=== PATIENT | female | born 1980 | race Hispanic/Latino ===

== ENCOUNTER 2020-01-31 14:22 | Emergency (ER) | payer SELFPAY ==
[2020-01-31] MEDS ORDERED: FLUORESCEIN SODIUM 1 MG/WRAP ONE (16:04)
[2020-01-31] MEDS ORDERED: TETRACAINE HCL 0.5% 4ML OPTH ONE (16:04)
--- NOTE | 2020-01-31 16:04 | ER ---
Nurse's Notes [facility] Name: Ofe Medellin Age: 39 yrs Sex: Female : 1980 Arrival Date: 01/31/2020 Time: 14:25 Bed 20 Private MD: Diagnosis: Injury of conjunctiva and cornea with foreign body of right eye Presentation: 01/30 14:31 Chief complaint: Patient states: "I feel like someone is stabbing me in my right eye. i jd3 found a cat hair near my eye and think it might have hurt my eye.". Coronavirus screen: At this time, the client does not indicate any symptoms associated with coronavirus-19. Ebola Screen: Patient negative for fever greater than or equal to 101.5 degrees Fahrenheit, and additional compatible Ebola Virus Disease symptoms. Initial Sepsis Screen: Does the patient meet any 2 criteria? No. Patient's initial sepsis screen is negative. Does the patient have a suspected source of infection? No. Patient's initial sepsis screen is negative. Risk Assessment: Do you want to hurt yourself or someone else? Patient reports no desire to harm self or others. Onset of symptoms was January 31, 2020. 14:31 Method Of Arrival: Ambulatory jd3 14:31 Acuity: MARELY 4 jd3 Triage Assessment: 15:20 General: Appears uncomfortable, Behavior is calm, cooperative. 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 - Social history:: Smoking status: Patient reports the use of cigarette tobacco products, smokes one-half pack cigarettes per day. Screenin:20 Abuse screen: Denies threats or abuse. Nutritional screening: No deficits noted. rb3 Tuberculosis screening: No symptoms or risk factors identified. Fall Risk None identified. Assessment: 15:20 General: Appears uncomfortable, Behavior is calm, cooperative. Pain: Complains of pain rb3 in right eye Pain currently is 8 out of 10 on a pain scale. Neuro: Level of Consciousness is awake, alert, obeys commands, Oriented to person, place, time, situation. Cardiovascular: Patient's skin is warm and dry. Respiratory: Airway is patent Respiratory effort is even, unlabored, Respiratory pattern is regular, symmetrical. GI: No signs and/or symptoms were reported involving the gastrointestinal system. : No signs and/or symptoms were reported regarding the genitourinary system. EENT: Eyes are tearing on iris of right eye Sclera/Cornea are reddened in right eye. Vital Signs: 14:35 BP 120 / 83; Pulse 83; Resp 16 S; Temp 98.5(TE); Pulse Ox 99% on R/A; Weight 86.18 kg jd3 (R); Height 5 ft. 10 in. (177.80 cm) (R); Pain 8/10; 14:35 Body Mass Index 27.26 (86.18 kg, 177.80 cm) jd3 ED Course: 14:25 Patient arrived in ED. as 14:32 Triage completed. jd3 14:36 Arm band placed on. jd3 14:39 [facility]C [facility] snw 14:39 Byron Menchaca MD is Attending Physician. snw 15:20 Patient has correct armband on for positive identification. Bed in low position. Call rb3 light in reach. Side rails up X 1. Pulse ox on. NIBP on. 16:02 Jayda Cruz MD is Referral Physician. snw 16:32 No provider procedures requiring assistance completed. Patient did not have IV access rb3 during this emergency room visit. Administered Medications: 16:00 Drug: Fluorescein Strip 1 strip Route: Ophthalmic; Site: right eye; rb3 16:00 Drug: Tetracaine Drops 0.5 % 1 drops Route: Ophthalmic; Site: right eye; rb3 16:24 Drug: [place] 5 mg-325 mg 1 tabs Route: PO; rb3 16:30 Follow up: Response: Medication administered at discharge. rb3 16:24 Drug: Gentamicin Ointment 0.3 % 0.5 inches Route: Ophthalmic; Site: right eye; rb3 Outcome: 16:04 Discharge ordered by . snw 16:32 Patient left the ED. rb3 16:32 Discharged to home ambulatory. rb3 16:32 Condition: stable 16:32 Discharge instructions given to patient, Instructed on discharge instructions, follow up and referral plans. medication usage, Demonstrated understanding of instructions, follow-up care, medications, Prescriptions given X 2. Signatures: Kirsten Yeung, GUEST SERVICES REPRESENTATIVE-C GUEST SERVICES REPRESENTATIVE-Csnw Yasemin Llanos Jonathon RN RN jd3 Beatriz Bingham, RN RN rb3
--- NOTE | 2020-01-31 16:05 | EDPHYS ---
Physician Documentation [facility] Name: Ofe Medellin Age: 39 yrs Sex: Female : 1980 Arrival Date: 01/31/2020 Time: 14:25 Bed 20 Private MD: ED Physician Byron Menchaca HPI: 01/30 16:32 This 39 yrs old Female presents to ER via Ambulatory with complaints of Eye snw Swelling, Drainage From Eye. 16:32 The patient sustained a scratch, to the right eye, caused by "cat hair". Onset: The snw symptoms/episode began/occurred suddenly, 2 day(s) ago, and became worse and became persistent. Duration: the symptoms are continuous. Associated signs and symptoms: Pertinent positives: headache. Patient wears soft contacts. Severity of symptoms: At their worst the symptoms were moderate. The patient has not experienced similar symptoms in the past. It is unknown whether or not the patient has recently seen a physician. 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 - Social history:: Smoking status: Patient reports the use of cigarette tobacco products, smokes one-half pack cigarettes per day. ROS: 16:28 Constitutional: Negative for fever, chills, and weight loss, ENT: Negative for injury, snw pain, and discharge, Neck: Negative for injury, pain, and swelling, Cardiovascular: Negative for chest pain, palpitations, and edema, Respiratory: Negative for shortness of breath, cough, wheezing, and pleuritic chest pain, Abdomen/GI: Negative for abdominal pain, nausea, vomiting, diarrhea, and constipation, Back: Negative for injury and pain, : Negative for injury, bleeding, discharge, and swelling, MS/Extremity: Negative for injury and deformity, Skin: Negative for injury, rash, and discoloration. 16:28 Psych: Negative for depression, anxiety, suicide ideation, homicidal ideation, and hallucinations. 16:28 Eyes: Positive for foreign body sensation, pain, redness, tearing, of the iris of right eye. 16:28 Neuro: Positive for headache. Exam: 16:26 Constitutional: This is a well developed, well nourished patient who is awake, alert, snw and in no acute distress. Head/Face: Normocephalic, atraumatic. ENT: Nares patent. No nasal discharge, no septal abnormalities noted. Tympanic membranes are normal and external auditory canals are clear. Oropharynx with no redness, swelling, or masses, exudates, or evidence of obstruction, uvula midline. Mucous membranes moist. Neck: Trachea midline, no thyromegaly or masses palpated, and no cervical lymphadenopathy. Supple, full range of motion without nuchal rigidity, or vertebral point tenderness. No Meningismus. Chest/axilla: Normal chest wall appearance and motion. Nontender with no deformity. No lesions are appreciated. Cardiovascular: Regular rate and rhythm with a normal S1 and S2. No gallops, murmurs, or rubs. Normal PMI, no JVD. No pulse deficits. Respiratory: Lungs have equal breath sounds bilaterally, clear to auscultation and percussion. No rales, rhonchi or wheezes noted. No increased work of breathing, no retractions or nasal flaring. Abdomen/GI: Soft, non-tender, with normal bowel sounds. No distension or tympany. No guarding or rebound. No evidence of tenderness throughout. Back: No spinal tenderness. No costovertebral tenderness. Full range of motion. Skin: Warm, dry with normal turgor. Normal color with no rashes, no lesions, and no evidence of cellulitis. MS/ Extremity: Pulses equal, no cyanosis. Neurovascular intact. Full, normal range of motion. Neuro: Awake and alert, GCS 15, oriented to person, place, time, and situation. Cranial nerves II-XII grossly intact. Motor strength 5/5 in all extremities. Sensory grossly intact. Cerebellar exam normal. Normal gait. Psych: Awake, alert, with orientation to person, place and time. Behavior, mood, and affect are within normal limits. 16:26 Eyes: Periorbital structures: appear normal, Pupils: no acute changes, Extraocular movements: no acute changes, Conjunctiva: injected, in the right eye, tearing noted, Corneas: abrasion, that is moderate sized, linear from top eyelid distal to pupil, foreign body, an eyelash, a fluorescein strip employed to appreciate the findings, foreign body removed, Lids and lashes: eyelash removed from upper lid. Nystagmus: is not appreciated. Vital Signs: 14:35 BP 120 / 83; Pulse 83; Resp 16 S; Temp 98.5(TE); Pulse Ox 99% on R/A; Weight 86.18 kg jd3 (R); Height 5 ft. 10 in. (177.80 cm) (R); Pain 8/10; 14:35 Body Mass Index 27.26 (86.18 kg, 177.80 cm) jd3 Procedures: 16:32 Eye Exam: linear corneal abrasion, upper lid with inverted eyelash in same location. snw Eyelash removed. MDM: 15:23 Patient medically screened. snw 16:31 Data reviewed: vital signs, nurses notes. Data interpreted: Pulse oximetry: on room air snw is 99 %. Interpretation: normal. Counseling: I had a detailed discussion with the patient and/or guardian regarding: the historical points, exam findings, and any diagnostic results supporting the discharge/admit diagnosis, the need for outpatient follow up, to return to the emergency department if symptoms worsen or persist or if there are any questions or concerns that arise at home. Special discussion: Based on the history and exam findings, there is no indication for further emergent testing or inpatient evaluation. I discussed with the patient/guardian the need to see the opthamologist for further evaluation of the symptoms, I discussed with the patient/guardian the need to see the primary care provider for further evaluation of the symptoms. 01/30 15:23 Order name: Eye Tray; Complete Time: 16:00 snw 01/30 15:45 Order name: Visual Acuity; Complete Time: 15:59 snw Administered Medications: 16:00 Drug: Fluorescein Strip 1 strip Route: Ophthalmic; Site: right eye; rb3 16:00 Drug: Tetracaine Drops 0.5 % 1 drops Route: Ophthalmic; Site: right eye; rb3 16:24 Drug: [place] 5 mg-325 mg 1 tabs Route: PO; rb3 16:30 Follow up: Response: Medication administered at discharge. rb3 16:24 Drug: Gentamicin Ointment 0.3 % 0.5 inches Route: Ophthalmic; Site: right eye; rb3 Disposition: 18:27 Co-signature as Attending Physician, Byron Menchaca MD I agree with the assessment and kdr plan of care. Disposition: 01/31/20 16:04 Discharged to Home. Impression: Injury of conjunctiva and cornea with foreign body of right eye. - Condition is Stable. - Discharge Instructions: Corneal Abrasion, Eye Foreign Body. - Prescriptions for Vigamox 0.5 % Ophthalmic Drops - instill 1 drop by OPHTHALMIC route every 8 hours for 7 days; 5 milliliter. Tramadol 50 mg Oral Tablet - take 1 tablet by ORAL route every 8 hours as needed; 12 tablet. - Medication Reconciliation Form, Thank You Letter, Antibiotic Education, Prescription Opioid Use form. - Follow up: Emergency Department; When: As needed; Reason: Worsening of condition. Follow up: Jayda Cruz MD; When: 1 - 2 days; Reason: Recheck today's complaints, Continuance of care. Signatures: Byron Menchaca MD MD kdr Waters, Shelly, GRAPHIC PRODUCTION ARTIST-C GRAPHIC PRODUCTION ARTIST-Csnw Gary Castro RN RN jBeatriz Velez, RN RN rb3 Corrections: (The following items were deleted from the chart) 16:32 16:04 01/31/2020 16:04 Discharged to Home. Impression: Injury of conjunctiva and cornea rb3 with foreign body of right eye. Condition is Stable. Forms are Medication Reconciliation Form, Thank You Letter, Antibiotic Education, Prescription Opioid Use. Follow up: Emergency Department; When: As needed; Reason: Worsening of condition. Follow up: Jayda Cruz; When: 1 - 2 days; Reason: Recheck today's complaints, Continuance of care. snw
[2020-01-31] MEDS ORDERED: HYDROCODONE/APAP 5/325 MG TAB ONE (16:33)
[2020-01-31] MEDS ORDERED: GENTAMICIN 0.3% OPTH DROP 5ML ONE (16:35)
[2020-01-31 17:59] VITALS: BP 120/83; TEMP 98.5; O2SAT 99
== END 2020-01-31 16:32 | disposition home or self-care (01) ==
LOC: ER 14:22
DX: T15.01XA Foreign body in cornea, right eye, initial encounter (principal); S00.251A Superficial foreign body of right eyelid and periocular area, initial encounter; F41.9 Anxiety disorder, unspecified; F90.9 Attention-deficit hyperactivity disorder, unspecified type; F17.210 Nicotine dependence, cigarettes, uncomplicated; Z88.1 Allergy status to other antibiotic agents
CPT/HCPCS: 99283

== ENCOUNTER 2020-03-05 01:31 | Emergency (ER) | payer SELFPAY ==
--- OUTSIDE RECORDS SUMMARY | 2020-03-05 01:34 | XMS REPORT | Continuity of Care Document ---
:1980 Author Organization [facility] t Address [address] [place] [address] Dr. Royal [address] [place] [id number] Care Team Providers Name Role Phone Unavailable Unavailable Unavailable Problems This patient has no known problems. Allergies, Adverse Reactions, Alerts This patient has no known allergies or adverse reactions. Medications This patient has no known medications. Procedures This patient has no known procedures. Results This patient has no known results.
--- NOTE | 2020-03-05 03:11 | ER ---
Nurse's Notes [facility] Name: Ofe Medellin Age: 39 yrs Sex: Female : 1980 Arrival Date: 03/05/2020 Time: 01:32 Bed 24 Private MD: Diagnosis: Gastrointestinal hemorrhage, unspecified-rectal bleeding, hemorrhoids Presentation: 03/05 01:49 Chief complaint: Patient states: Im having pain in my bottom, I think its a large sg hemorrhoid. Coronavirus screen: Client denies travel out of the [place] in the last 14 days. Ebola Screen: Patient negative for fever greater than or equal to 101.5 degrees Fahrenheit, and additional compatible Ebola Virus Disease symptoms Patient denies exposure to infectious person. Patient denies travel to an Ebola-affected area in the 21 days before illness onset. No symptoms or risks identified at this time. Initial Sepsis Screen: Does the patient meet any 2 criteria? No. Patient's initial sepsis screen is negative. Does the patient have a suspected source of infection? No. Patient's initial sepsis screen is negative. Risk Assessment: Do you want to hurt yourself or someone else? Patient reports no desire to harm self or others. Onset of symptoms was March 05, 2020. Care prior to arrival: None. Transition of care: patient was not received from another setting of care. 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 - Social history:: Smoking status: Patient denies any tobacco usage or history of. - Family history:: not pertinent. Screenin:04 Abuse screen: Denies threats or abuse. Denies injuries from another. Nutritional mg2 screening: No deficits noted. Tuberculosis screening: No symptoms or risk factors identified. Fall Risk. Assessment: 02:03 General: Appears in no apparent distress. comfortable, Behavior is calm, cooperative. mg2 Pain: Complains of pain in anal area Quality of pain is described as aching, Pain began gradually, 1 week ago. Neuro: Level of Consciousness is awake, alert, obeys commands, Oriented to person, place, time, situation. Cardiovascular: Capillary refill < 3 seconds Patient's skin is warm and dry. Respiratory: Airway is patent Respiratory effort is even, unlabored, Respiratory pattern is regular, symmetrical. GI: Reports rectal pain. : No signs and/or symptoms were reported regarding the genitourinary system. EENT: No signs and/or symptoms were reported regarding the EENT system. Derm: Skin is intact, is healthy with good turgor, Skin is pink, warm \T\ dry. normal. Musculoskeletal: Circulation, motion, and sensation intact. Capillary refill < 3 seconds. Vital Signs: 01:49 BP 144 / 80; Pulse 78; Resp 16; Pulse Ox 100% on R/A; Pain 10/10; sg 03:35 BP 135 / 78; Pulse 80; Resp 18; Temp 98; Pulse Ox 100% on R/A; mg2 ED Course: 01:32 Patient arrived in ED. ag3 01:35 Mikal Hoyt MD is Attending Physician. mendez 01:49 Triage completed. sg 01:49 Arm band placed on. sg 01:57 Adolph Mercado, KOBE is Primary Nurse. mg2 02:05 Patient has correct armband on for positive identification. mg2 03:09 Shawn Mendoza MD is Referral Physician. mendez 03:09 Urine collected: clean catch specimen, cloudy. sg 03:35 No provider procedures requiring assistance completed. Patient did not have IV access mg2 during this emergency room visit. Administered Medications: 03:13 Drug: Cipro 500 mg Route: PO; mg2 03:35 Follow up: Response: No adverse reaction mg2 03:13 Drug: [place] (7.5 mg-325 mg) 1 tabs Route: PO; mg2 03:35 Follow up: Response: No adverse reaction mg2 03:34 Drug: Anusol-HC 25 mg 25 mg Route: NV; mg2 03:34 Follow up: Response: No adverse reaction; Medication administered at discharge. mg2 Outcome: 03:11 Discharge ordered by . mendez 03:35 Discharged to home ambulatory. mg2 03:35 Condition: stable 03:35 Discharge instructions given to patient, Instructed on discharge instructions, follow up and referral plans. medication usage, Demonstrated understanding of instructions, follow-up care, medications, Prescriptions given X 4. 03:36 Patient left the ED. mg2 Signatures: Ghassan Bangura RN RN sg Anderson, Corey, MD MD cha Gardose, Michele, RN RN mg2 Radha Mariee
--- NOTE | 2020-03-05 03:11 | EDPHYS ---
Physician Documentation [facility] Name: Ofe Medellin Age: 39 yrs Sex: Female : 1980 Arrival Date: 03/05/2020 Time: 01:32 Bed 24 Private MD: TRACY Physician Mikal Hoyt HPI: 03/05 03:04 This 39 yrs old Female presents to ER via Ambulatory with complaints of mendez Hemorrhoids. 03:04 The patient presents to the emergency department with rectal bleeding, bright red blood mendez with bowel movement. Onset: The symptoms/episode began/occurred 1 year(s) ago. Abdominal pain: none is appreciated. Modifying factors: The symptoms are alleviated by remaining still, the symptoms are aggravated by movement, pressure. The patient presents to the emergency department with bleeding from the rectum/anus, that is mild, pain in the rectal area, that is moderate. Context: the patient has a known history of hemorrhoids. Modifying factors: The symptoms are alleviated by remaining still, sitz baths, The symptoms are aggravated by bowel movement, sitting position. Severity of symptoms: At their worst the symptoms were mild moderate in the emergency department the symptoms are unchanged. Associate signs and symptoms: The patient has no apparent associated signs or symptoms. 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 - Social history:: Smoking status: Patient denies any tobacco usage or history of. - Family history:: not pertinent. ROS: 03:04 Constitutional: Negative for fever, chills, and weight loss, Eyes: Negative for injury, mendez pain, redness, and discharge, ENT: Negative for injury, pain, and discharge, Neck: Negative for injury, pain, and swelling, Cardiovascular: Negative for chest pain, palpitations, and edema, Respiratory: Negative for shortness of breath, cough, wheezing, and pleuritic chest pain, Back: Negative for injury and pain, : Negative for injury, bleeding, discharge, and swelling, MS/Extremity: Negative for injury and deformity, Skin: Negative for injury, rash, and discoloration, Neuro: Negative for headache, weakness, numbness, tingling, and seizure, Psych: Negative for depression, anxiety, suicide ideation, homicidal ideation, and hallucinations, Allergy/Immunology: Negative for hives, rash, and allergies, Endocrine: Negative for neck swelling, polydipsia, polyuria, polyphagia, and marked weight changes, Hematologic/Lymphatic: Negative for swollen nodes, abnormal bleeding, and unusual bruising. 03:04 Abdomen/GI: Positive for rectal pain, rectal bleeding, of the . Exam: 03:04 Constitutional: This is a well developed, well nourished patient who is awake, alert, mendez and in no acute distress. Head/Face: Normocephalic, atraumatic. Eyes: Pupils equal round and reactive to light, extra-ocular motions intact. Lids and lashes normal. Conjunctiva and sclera are non-icteric and not injected. Cornea within normal limits. Periorbital areas with no swelling, redness, or edema. ENT: Nares patent. No nasal discharge, no septal abnormalities noted. Tympanic membranes are normal and external auditory canals are clear. Oropharynx with no redness, swelling, or masses, exudates, or evidence of obstruction, uvula midline. Mucous membranes moist. Neck: Trachea midline, no thyromegaly or masses palpated, and no cervical lymphadenopathy. Supple, full range of motion without nuchal rigidity, or vertebral point tenderness. No Meningismus. Chest/axilla: Normal chest wall appearance and motion. Nontender with no deformity. No lesions are appreciated. Cardiovascular: Regular rate and rhythm with a normal S1 and S2. No gallops, murmurs, or rubs. Normal PMI, no JVD. No pulse deficits. Respiratory: Lungs have equal breath sounds bilaterally, clear to auscultation and percussion. No rales, rhonchi or wheezes noted. No increased work of breathing, no retractions or nasal flaring. Back: No spinal tenderness. No costovertebral tenderness. Full range of motion. Pelvic Exam: Normal external genitalia. Speculum exam with closed cervical os, no discharge or bleeding noted. Bimanual exam with normal adnexa, no adnexal or cervical motion tenderness. Normal uterus. Skin: Warm, dry with normal turgor. Normal color with no rashes, no lesions, and no evidence of cellulitis. MS/ Extremity: Pulses equal, no cyanosis. Neurovascular intact. Full, normal range of motion. Neuro: Awake and alert, GCS 15, oriented to person, place, time, and situation. Cranial nerves II-XII grossly intact. Motor strength 5/5 in all extremities. Sensory grossly intact. Cerebellar exam normal. Normal gait. Psych: Awake, alert, with orientation to person, place and time. Behavior, mood, and affect are within normal limits. 03:04 Abdomen/GI: Inspection: abdomen appears normal, Bowel sounds: normal, Palpation: abdomen is soft and non-tender, Rectal exam: hemorrhoid(s), external, with associated bleeding, with inflammation, with pain, mass, is not appreciated, swelling, that is mild, Liver: no appreciated palpable abnormalities, Hernia: not appreciated. Vital Signs: 01:49 BP 144 / 80; Pulse 78; Resp 16; Pulse Ox 100% on R/A; Pain 10/10; sg 03:35 BP 135 / 78; Pulse 80; Resp 18; Temp 98; Pulse Ox 100% on R/A; mg2 MDM: 01:35 Patient medically screened. [facility] 03:08 Differential diagnosis: hemorrhoids, hemorrhoids, condyloma. Data reviewed: vital mendez signs, nurses notes, lab test result(s), urinalysis. 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 rate is 78 beats/min, rhythm is regular, Pulse oximetry: on room air is 100 %. 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 12 03:11 Order name: Urine Dipstick--Ancillary (enter results) 12 03:11 Order name: Urine --Ancillary (enter results) 03/05 03:04 Order name: Urine Dipstick-Ancillary (obtain specimen); Complete Time: 03:[address] [facility] 12 03:04 Order name: Urine Test (obtain specimen); Complete Time: 03:09 mendez Administered Medications: 03:13 Drug: Cipro 500 mg Route: PO; mg2 03:35 Follow up: Response: No adverse reaction mg2 03:13 Drug: Hutchinson (7.5 mg-325 mg) 1 tabs Route: PO; mg2 03:35 Follow up: Response: No adverse reaction mg2 03:34 Drug: Anusol-HC 25 mg 25 mg Route: ID; mg2 03:34 Follow up: Response: No adverse reaction; Medication administered at discharge. mg2 Disposition: 03/05/20 03:11 Discharged to Home. Impression: Gastrointestinal hemorrhage, unspecified - rectal bleeding, hemorrhoids. - Condition is Stable. - Discharge Instructions: Hemorrhoids, Rectal Bleeding, How to Take a Sitz Bath, Hemorrhoids, [id number]. - Prescriptions for Tylenol- Codeine #3 300-30 mg Oral Tablet - take 2 tablets by ORAL route every 6 hours As needed; 16 tablet. Cipro 500 mg Oral Tablet - take 1 tablet by ORAL route every 12 hours for 7 days; 14 tablet. Anusol- HC 25 mg Rectal Suppository - insert 1 suppository by RECTAL route every 12 hours As needed; 20 suppository. Miralax 17 gram/dose Oral - take 1 packet by ORAL route once daily dilute powder in 8 ounces of water or juice; 14 packet. - Medication Reconciliation Form, Thank You Letter, Antibiotic Education, Prescription Opioid Use form. - Follow up: Private Physician; When: 2 - 3 days; Reason: Recheck today's complaints, Continuance of care, Re-evaluation by your physician. Follow up: Shawn Mendoza MD; When: 2 - 3 days; Reason: Recheck today's complaints, Re-evaluation by your physician. - Problem is new. - Symptoms have improved. Signatures: Dispatcher [employer] EDGhassan Rossi RN RN sg Anderson, Corey, MD MD cha Gardose, Michele RN RN mg2 Corrections: (The following items were deleted from the chart) 03:36 03:11 03/05/2020 03:11 Discharged to Home. Impression: Gastrointestinal hemorrhage, mg2 unspecified - rectal bleeding, hemorrhoids. Condition is Stable. Forms are Medication Reconciliation Form, Thank You Letter, Antibiotic Education, Prescription Opioid Use. Follow up: Private Physician; When: 2 - 3 days; Reason: Recheck today's complaints, Continuance of care, Re-evaluation by your physician. Follow up: Shawn Mendoza; When: 2 - 3 days; Reason: Recheck today's complaints, Re-evaluation by your physician. Problem is new. Symptoms have improved. mendez
[2020-03-05] MEDS ORDERED: CIPROFLOXACIN HCL 500 MG TAB ONE (03:25)
[2020-03-05] MEDS ORDERED: HYDROCODONE/APAP 7.5/325 MG TAB ONE (03:25)
[2020-03-05] MEDS ORDERED: HYDROCORTISONE ACETATE 25MG SUPP PR ONE (03:39)
[2020-03-05 05:06] LABS: Urine Blood 1+ (NEG); Urine Glucose NEGATIVE (NEG); Urine Protein NEGATIVE (NEG)
== END 2020-03-05 03:36 | disposition home or self-care (01) ==
LOC: ER 01:31
DX: K64.9 Unspecified hemorrhoids (principal); Z88.1 Allergy status to other antibiotic agents
CPT/HCPCS: 81003; 81025; 99283

== ENCOUNTER 2024-11-06 05:10 | Emergency (ER) | payer SELFPAY ==
--- OUTSIDE RECORDS SUMMARY | 2024-11-06 05:13 | XMS REPORT | Continuity of Care Document ---
Author Name Unknown Address [address] [place] [address] [facility] Address [address] [place] [address] Care Team Providers Care Fisher Gill Net Name Role Phone Syeda Alcazar Attending Clinician Unavail able UNDEFINED Admitting Clinician Unavailable Payers Payer Name Policy Type Policy Number Effective Date Expirati on Date Source Allergies, Adverse Reactions, Alerts Allergy Name Allergy Type Status Severity Reaction(s) Onset Date Inactive Date Treating Clinician Comments Source No Known Allergie s DA Active U 09-15 00:00: 00 [facility] Encounters Start Date/Time End Date/Time Encounter Type Admission Type Attending Clinicians Care Facility Care Department Encounter ID Source 2021-09-16 01:32:21 Outpatient [facility] [id number] [facility] 2021-09-15 11:51:00 2021-09-17 02:15:00 Emergency EM Syeda Alcazar [facility] [id number] [facility] Results Test Description Test Time Test Comments Results Result Co mments Source [id number] 12:40:00* Test Item Value Reference Range Interpretation Comme nts ALCOHOL (test code = ALC) < 3 MG/DL 0-10 N BASIC METABOLIC [id number] 12:40:00* Test Item Value Reference Range Interpretation Comme nts SODIUM (test code = NA) 138 mmol/L 134-147 N POTASSIUM (test code = K) 3.4 mmol/L 3.4-5.0 N CHLORIDE (test code = CL) 104 mmol/L 100-108 N CARBON DIOXIDE (test code = CO2) 25 mmol/L 21-32 N ANION GAP (test code = GAP) 9.0 GAP calc 4.0-15.0 N GLUCOSE (test code = GLU) 101 MG/DL 70-110 N BLOOD UREA NITROGEN (test code = BUN) 7 MG/DL 7-18 N GLOMERULAR FILTRATION RATE (test code = GFR) >=60 max estimate estGFR >60 CREATININE (test code = CREAT) 0.8 MG/DL 0.6-1.0 N CALCIUM (test code = CA) 9.8 MG/DL 8.5-10.1 N HEPATIC FUNCTION [id number] 12:40:00* Test Item Value Reference Range Interpretation Comme nts TOTAL PROTEIN (test code = PROT) 8.5 G/DL 6.4-8.2 H ALBUMIN (test code = ALB) 4.8 G/DL 3.4-5.0 N BILIRUBIN TOTAL (test code = BILT) 0.70 MG/DL 0.2-1.2 N BILIRUBIN DIRECT (test code = BILD) 0.20 MG/DL 0.00-0.30 N BILIRUBIN INDIRECT (test cod e = BILIND) 0.50 MG/DL 0.2-1.2 N SGOT/AST (test code = AST) 12 Unit/L 15-37 L SGPT/ALT (test code = ALT) 19 Unit/L 12-78 N ALKALINE PHOSPHATASE TOTAL ( test code = ALKP) 85 Unit/L 45-117 N CREATINE KINASE (CK)2021-09-15 12:40:00* Test Item Value Reference Range Interpretation Comme nts CREATINE KINASE (CK) (test c ode = CK) 128 Unit/L 26-192 N UA RFLX MICR CULT IF [id number] 12:26:00* Test Item Value Reference Range Interpretation Comme nts UA COLOR (test code = COLU) YELLOW discript YEL/STRAW UA APPEARANCE (test code = APPU) CLEAR discript CLEAR UA GLUCOSE DIPSTICK (test code = DGLUU) NEGATIVE mg/dL NEG UA BILIRUBIN DIPSTICK (test code = BILU) NEGATIVE mg/dL NEG UA KETONE DIPSTICK (test code = KETU) NEGATIVE mg/dL NEG UA SPECIFIC GRAVITY (test code = SGU) <=1.005 SG 1.005-1.030 UA BLOOD DIPSTICK (test code = JOHN) 2+ mg/DL NEG A UA PH DIPSTICK (test code = AMADOR) 6.0 pH UNITS 5.0-7.0 UA PROTEIN DIPSTICK (test code = PROU) NEGATIVE mg/dL NEG UA UROBILINIOGEN DIPSTICK (test code = URO) 0.2 mg/dL <2.0 UA NITRITE DIPSTICK (test code = AIMEE) NEGATIVE SCREEN NEG UA LEUKOCYTE ESTERASE DIPSTICK (test code = LEUU) NEGATIVE Leuk/mcL NEGATIVE UA CULTURE NEEDED? (test code = UACULT) NO, WBC<10 Criteria Culture CHK UA WBC (test code = WBCU) 0-1 #WBC/HPF 0-3 UA RBC (test code = RBCU) 10-20 #RBC/HPF 0-3 A UA BACTERIA (test code = BACU) 1+ /HPF NONE-TRACE A UA SQUAMOUS CELLS (test code = SQU) 1+ /HPF NONE A Indication for culture: Suprapubic PainSOURCE OF URINE: CLEAN CATCHDRUGS OF ABUSE SCREEN [id number] 12:26:00* Test Item Value Reference Range Interpretation Comme nts URN COCAINE (test code = COCAURN) NEGATIVE SCcutoff See_Comment UNCONFIRMED SCREENING RESULTS SHOULD NOT BE USED FORNON-MEDICAL PURPOSES. [Automated message] The system which generated this result transmitted reference range: <300 NG/ML. The reference range was not used to interpret this result as normal/abnormal. URN CANNABINOIDS (test code = CANNABURN) POSITIVE SCcutoff See_Comment A UNCONFIRMED SCREENING RESULTS SHOULD NOT BE USED FORNON-MEDICAL PURPOSES. [Automated message] The system which generated this result transmitted reference range: <50 NG/ML. The reference range was not used to interpret this result as normal/abnormal. URN AMPHETAMINE (test code = AMPHETURN) POSITIVE SCcutoff See_Comment A UNCONFIRMED SCREENING RESULTS SHOULD NOT BE USED FORNON-MEDICAL PURPOSES. [Automated message] The system which generated this result transmitted reference range: <1000 NG/ML. The reference range was not used to interpret this result as normal/abnormal. URN BARBITURATE (test code = BARBITURN) NEGATIVE SCcutoff See_Comment UNCONFIRMED SCREENING RESULTS SHOULD NOT BE USED FORNON-MEDICAL PURPOSES. [Automated message] The system which generated this result transmitted reference range: <200 NG/ML. The reference range was not used to interpret this result as normal/abnormal. URN BENZODIAZEPINE (test code = BENZOURN) NEGATIVE SCcutoff See_Comment UNCONFIRMED SCREENING RESULTS SHOULD NOT BE USED FORNON-MEDICAL PURPOSES. [Automated message] The system which generated this result transmitted reference range: <200 NG/ML. The reference range was not used to interpret this result as normal/abnormal. URN OPIATES (test code = OPIATURN) NEGATIVE SCcutoff See_Comment UNCONFIRMED SCREENING RESULTS SHOULD NOT BE USED FORNON-MEDICAL PURPOSES. [Automated message] The system which generated this result transmitted reference range: <300 NG/ML. The reference range was not used to interpret this result as normal/abnormal. URN PHENCYCLIDINE (PCP) (test code = PHENCURN) NEGATIVE SCcutoff See_Comment UNCONFIRMED SCREENING RESULTS SHOULD NOT BE USED FORNON-MEDICAL PURPOSES. [Automated message] The system which generated this result transmitted reference range: <25 NG/ML. The reference range was not used to interpret this result as normal/abnormal. URN METHADONE (test code = METHAURN) NEGATIVE SCcutoff See_Comment UNCONFIRMED SCREENING RESULTS SHOULD NOT BE USED FORNON-MEDICAL PURPOSES. [Automated message] The system which generated this result transmitted reference range: <300 NG/ML. The reference range was not used to interpret this result as normal/abnormal. Indication for culture: Suprapubic PainSOURCE OF URINE: CLEAN CATCHCBC W/AUTO [id number] 12:18:00* Test Item Value Reference Range Interpretation Comme nts WHITE BLOOD CELL (test code = WBC) 11.2 K/mm3 3.5-11.0 H RED BLOOD CELL (test code = RBC) 5.04 M/mm3 4.70-6.10 N HEMOGLOBIN (test code = HGB) 15.3 G/DL 10.4-14.9 H HEMATOCRIT (test code = HCT) 45.1 % 31.5-44.1 H MEAN CELL VOLUME (test code = MCV) 89.5 Fl 84.5-98.6 N MEAN CELL HGB (test code = MCH) 30.4 pg 27.0-34.2 N MEAN CELL HGB CONCETRATION (test code = MCHC) 33.9 G/DL 31.5-34.0 N RED CELL DISTRIBUTION WIDTH (test code = RDW) 13.0 SD 11.5-14.5 N PLATELET COUNT (test code = PLT) 351 K/mm3 150-450 N MEAN PLATELET VOLUME (test c ode = MPV) 8.10 fL 7.0-10.5 N NEUTROPHIL % (test code = NT%) 69.6 % 40-76 N IMMATURE GRANULOCYTE % (test code = IG%) 0.3 % 0.0-5.0 N LYMPHOCYTE % (test code = LY%) 22.6 % 20.5-51.1 N MONOCYTE % (test code = MO%) 6.7 % 1.7-9.3 N EOSINOPHIL % (test code = EO%) 0.6 % 0.0-6.0 N BASOPHIL % (test code = BA%) 0.2 % 0.0-2.0 N NUCLEATED RBC % (test code = NRBC%) 0.0 /100WBC% 0.0-1.0 N NEUTROPHIL # (test code = NT#) 7.8 K/mm3 1.8-7.6 H IMMATURE GRANULOCYTE # (test code = IG#) 0.03 x10 3/uL 0.00-0.03 N LYMPHOCYTE # (test code = LY#) 2.5 K/mm3 0.6-3.2 N MONOCYTE # (test code = MO#) 0.8 K/mm3 0.3-1.1 N EOSINOPHIL # (test code = EO#) 0.1 K/mm3 0.0-0.4 N BASOPHIL # (test code = BA#) 0.0 K/mm3 0.0-0.1 N NUCLEATED RBC # (test code = NRBC#) 0.0 K/mm3 0.0-0.1 N MANUAL DIFF REQUIRED (test c ode = MDIFF) NO DIFF/SCN CRITERIA
[2024-11-06] MEDS ORDERED: ZIPRASIDONE MESYLA 20 MG/VIAL IM ONE (05:29)
[2024-11-06] MEDS ORDERED: WATER FOR INJ,STERILE 10 ML ONE (05:30)
[2024-11-06 08:23] LABS: Absolute Lymphocytes (CBC) 2.2 K/uL (0.7-4.9); Hematocrit 40.2 % (36.0-45.0); Hemoglobin 13.3 g/dL (12.0-15.0); MCH 26.3 pg (27.0-35.0); MCHC 33.0 g/dL (32.0-36.0); MCV 79.7 fL (80-100); MPV 7.3 fL (7.6-11.3); Nucleated RBC Absolute Count 0.0 (0-0); Nucleated Red Blood Cells % 0.1 % (0-0); RBC Red Blood Cell Count 5.04 M/uL (3.86-4.86); White Blood Count 6.90 thou/uL (4.3-10.9)
[2024-11-06 08:53] LABS: PT Prothrombin Time 13.8 SECONDS (10-13.0); PTT, Activated Partial Thromb 33.6 SECONDS (27.2-37.4); Protime INR 1.23
[2024-11-06 08:54] LABS: ALT/SGPT 36 U/L (13-56); Albumin 3.9 g/dL (3.4-5.0); Albumin/Globulin Ratio 1.1 (1.1-1.8); Alkaline Phosphatase 60 U/L (45-117); Anion Gap 11.5 mEq/L (5.0-15.0); BUN Blood Urea Nitrogen 10 mg/dL (7-18); Globulin 3.7 g/dL (2.3-3.5); Glucose Level 93 mg/dL (74-106)
[2024-11-06 08:55] LABS: AST/SGOT 38 U/L (15-37); Bilirubin Indirect, Calculated 0.3 mg/dL (0.2-0.8); Potassium 4.5 mEq/L (3.5-5.1)
[2024-11-06] MEDS ORDERED: NA CHLORIDE 0.9% 1,000 ML ONE (08:57)
--- NOTE | 2024-11-06 09:20 | ER ---
Nurse's Notes [facility] Name: Ofe Ordoñez Age: 43 yrs Sex: Female : 1980 Arrival Date: 11/06/2024 Time: 05:10 Bed 20 Private MD: Diagnosis: Psychosis, altered mental status;Methamphetamine use disorder, acute methamphetamine intoxication, acute drug related psychosis, exacerbation of chronic schizophrenia Presentation: 11/06 05:10 Chief complaint: [place] police stated patient was standing outside a crematorium, in tb4 front of the door mumbling to herself. Coronavirus screen: At this time, the client does not indicate any symptoms associated with coronavirus-19. Ebola Screen: No symptoms or risks identified at this time. 05:10 Method Of Arrival: Law Enforcement: [place] [employer] tb4 07:08 Acuity: MARELY 3 tb4 11/07 12:41 Initial Sepsis Screen: Does the patient meet any 2 criteria? No. Patient's initial [facility] sepsis screen is negative. Does the patient have a suspected source of infection? No. Patient's initial sepsis screen is negative. Risk Assessment: Do you want to hurt yourself or someone else? Patient reports no desire to harm self or others. Onset of symptoms is unknown. 12:42 Chief complaint: belongings obtained from security and sent with patient and mental [facility] health deputy. Triage Assessment: 11/06 05:10 EENT: Eyes left eye appears abnormal. Neuro: Level of Consciousness is confused, tb4 Hallucination, rapid continous speech with abrupt speech. Oriented to none Gait is steady, Speech rapid and abrupt . Facial symmetry appears normal. Derm: Skin is intact, Skin is dry, Skin is normal. COLLECTIONS MANAGER: 11/07 12:41 unknown, UTO as patient is confused and wont say. [facility] Historical: - Allergies: 11/06 12:15 Cephalexin; iw - PMHx: 12:15 ADD/ADHD; Anxiety; depressive disorder; Schizophrenia; iw - Immunization history:: Adult Immunizations unknown. - Infectious Disease History:: Denies. - Family history:: not pertinent. - Social history:: Smoking status: unknown. Screenin:32 [facility] ED Fall Risk Assessment (Adult) History of falling in the last 3 months, iw including since admission No falls in past 3 months (0 pts) Confusion or Disorientation Yes (5 pts) Intoxicated or Sedated Yes (3 pts) Impaired Gait No (0 pts) Mobility Assist Device Used No (0 pt) Altered Elimination No (0 pt) Score/Fall Risk Level 3 or more points = High Risk Oriented to surroundings, Maintained a safe environment. Abuse screen: Denies threats or abuse. Nutritional screening: No deficits noted. Tuberculosis screening: No symptoms or risk factors identified. Assessment: 05:39 General: Appears distressed, unkempt, Behavior is listless, delusional . Neuro: Level tb4 of Consciousness is awake, alert, listless, Oriented to none Speech rapid. 06:57 Reassessment: Personal valuables has been accounted for a signed. Patient in bed with tb4 eyes closed, respiration even and unlabored, equal rise and fall of chest. 08:19 General: Appears uncomfortable, well developed, Behavior is agitated, restless. Pain: iw Unable to use pain scale. FLACC scale score is 5 out of 10. Neuro: Level of Consciousness is confused, Oriented to person, Moves all extremities. Cardiovascular: Patient's skin is warm and dry. Respiratory: Respiratory effort is even, unlabored, Respiratory pattern is regular, symmetrical. GI: Abdomen is non-distended, obese, Abd is soft and non tender X 4 quads. EENT: Oral mucosa is dry. Derm: Skin is intact, is healthy with good turgor. Musculoskeletal: Range of motion: intact in all extremities. 08:24 Reassessment: KATIANA DELVALLE CALLED FOR PATIENT ASSISTANCE. PT NOT COOPERATING. cp4 08:25 Reassessment: pr climbing out of bed, refusing to lay back down, Seng critical care technician assisted iw pt back into bed. 08:44 Reassessment: pt sitting up eating. iw 10:23 Reassessment: Patient appears in no apparent distress at this time. pt appears to be iw sleeping, respirations even and unlabored. 12:13 Neuro: Level of Consciousness is awake, alert, obeys commands, Oriented to person, iw place, time. 12:14 Reassessment: pt oriented X 3 but still hallucinating, seeing people that are not here iw , states she needs to go to [place] because she takes xanax. 13:30 Reassessment: No changes from previously documented assessment. Patient and/or family rg5 updated on plan of care and expected duration. Pain level reassessed. 13:30 General: Appears distressed. rg5 14:21 General: Appears in no apparent distress. comfortable, Behavior is calm, cooperative, rg5 appropriate for age. 15:36 General: Appears in no apparent distress. Behavior is crying, restless. Respiratory: rg5 Airway is patent Respiratory effort is even, unlabored. 16:00 General: Behavior is calm, cooperative. rg5 16:00 Reassessment: No changes from previously documented assessment. rg5 17:00 Reassessment: Patient and/or family updated on plan of care and expected duration. Pain rg5 level reassessed. Patient is alert, oriented x 3, equal unlabored respirations, skin warm/dry/pink. 17:00 General: Appears in no apparent distress. Neuro: Level of Consciousness is awake, rg5 alert. Respiratory: Airway is patent Respiratory pattern is regular, symmetrical. 18:10 Reassessment: Patient and/or family updated on plan of care and expected duration. Pain rg5 level reassessed. General: Appears uncomfortable, Behavior is crying. 19:20 General: Appears in no apparent distress. Behavior is calm, cooperative, appropriate rg5 for age. 20:16 Reassessment: No changes from previously documented assessment. Patient and/or family rg5 updated on plan of care and expected duration. Pain level reassessed. Patient is alert, oriented x 3, equal unlabored respirations, skin warm/dry/pink. 21:16 Reassessment: No changes from previously documented assessment. Patient and/or family rg5 updated on plan of care and expected duration. Pain level reassessed. General: Appears in no apparent distress. Behavior is calm, cooperative, appropriate for age, sleeping. 22:06 General: Appears in no apparent distress. comfortable, Behavior is calm, cooperative. al5 Pain: Denies pain. Neuro: Level of Consciousness is awake, alert, obeys commands, confused, sentences not cohesive, multiple thoughts running into one sentence.. Cardiovascular: Patient's skin is warm and dry. Respiratory: Airway is patent Respiratory effort is even, unlabored, Respiratory pattern is regular, symmetrical. Derm: Skin is intact, is healthy with good turgor, Skin is pink, warm \\T\\ dry. normal. Musculoskeletal: Circulation, motion, and sensation intact. Range of motion: intact in all extremities. 22:12 Reassessment: patient states she was starving, let patient know that our kitchen is al5 closed and offered either a peanut butter and jelly sandwich or a turkey sandwich, patient requested peanut butter and jelly sandwich. sandwich given to patient at this time and patient is eating sandwich in bed. 23:08 Reassessment: Patient appears in no apparent distress at this time. No changes from al5 previously documented assessment. Patient and/or family updated on plan of care and expected duration. Pain level reassessed. 11/07 00:02 Reassessment: Patient appears in no apparent distress at this time. Patient and/or al5 family updated on plan of care and expected duration. Pain level reassessed. patient resting comfortably at this time, respirations even and unlabored, patient in no apparent distress at this time. 01:33 Reassessment: Patient appears in no apparent distress at this time. No changes from al5 previously documented assessment. Patient and/or family updated on plan of care and expected duration. Pain level reassessed. patient resting comfortably at this time, respirations even and unlabored, patient in no apparent distress at this time. 02:35 Reassessment: Patient appears in no apparent distress at this time. No changes from al5 previously documented assessment. Patient is alert, oriented x 3, equal unlabored respirations, skin warm/dry/pink. patient resting comfortably at this time, respirations even and unlabored, patient in no apparent distress at this time. 04:32 Reassessment: Patient appears in no apparent distress at this time. No changes from al5 previously documented assessment. Patient and/or family updated on plan of care and expected duration. Pain level reassessed. patient resting comfortably at this time, respirations even and unlabored, patient in no apparent distress at this time. 06:13 Reassessment: Patient appears in no apparent distress at this time. No changes from al5 previously documented assessment. Patient and/or family updated on plan of care and expected duration. Pain level reassessed. 07:00 Reassessment: RECD REPORT FROM SANTY BULLOCK. 43YO HF P/W PSYCH D/O. PT DENIES SI/HI. NO bp SITTER AVAILABLE, CHARGE NURSE NOTIFIED. 08:45 Reassessment: REPORT TO YOVANNY BULLOCK AT [facility]. bp 10:00 General: Appears distressed, unkempt, well developed, Behavior is restless, me1 uncooperative. Pain: Denies pain. Neuro: Level of Consciousness is awake, alert, confused, Oriented to person, situation. Cardiovascular: Patient's skin is warm and dry. Respiratory: Airway is patent Respiratory effort is even, unlabored, Respiratory pattern is regular, symmetrical. GI: Abdomen is non-distended, obese. : No signs and/or symptoms were reported regarding the genitourinary system. EENT: No signs and/or symptoms were reported regarding the EENT system. Derm: Skin is intact, is healthy with good turgor, Skin is normal. Musculoskeletal: Circulation, motion, and sensation intact. Range of motion: intact in all extremities. Psych: 11/06 08:17 [place] Suicide Severity Screening: In the past month, have you wished you were iw or wished you could go to sleep and not wake up? Patient responds "No." "In the past month, have you actually had any thoughts of killing yourself?" Patient responds "no." "In your lifetime, have you ever done anything, started to do anything, or prepared to do anything to end your life?" pt unable to verbalize answer at this time, confused. Subjective: Patient's mood is irritable, Delusions are grandiose, erotomania, Hallucinations are suspected. Objective: Patient is irritable, restless, Speech is rambling, slurred. Interventions: Removed personal items and placed in bag. Patient placed in hospital gown. Urine collected and sent for urine drug test. Safety Checks: Personal items have been removed. Pt has been placed in a hallway bed/chair. No visitors are present at this time. 11/07 10:00 [place] Suicide Severity Screening: In the past month, have you wished you were me1 or wished you could go to sleep and not wake up? Patient responds "No." "In the past month, have you actually had any thoughts of killing yourself?" Patient responds "no." "In your lifetime, have you ever done anything, started to do anything, or prepared to do anything to end your life?" Patient responds "no.". Subjective: Patient's mood is irritable, Delusions are grandiose, protestant, erotomania, Hallucinations are suspected. Objective: Patient is uncooperative, irritable, restless, Speech is rambling. Interventions: Removed personal items and placed in bag. Patient placed in hospital gown. Safety Checks: Personal items have been removed. Pt has been placed in a hallway bed/chair. No visitors are present at this time. Commitment: Patient will be an involuntary commitment. Vital Signs: 11/06 05:10 tb4 05:10 tb4 06:53 BP 127 / 69 Supine; Pulse 67; Resp 16 S; Temp 97.7(O); Pulse Ox 96% on R/A; Weight iw 81.65 kg; Height 5 ft. 6 in. ; 23:00 BP 129 / 84; Pulse 70; Resp 18; Pulse Ox 100% on R/A; al5 11/07 07:00 BP 131 / 75; Pulse 75; Resp 16; Pulse Ox 99% ; bp 12:37 BP 130 / 78; Pulse 68; Resp 16; Temp 98.2; Pulse Ox 98% ; me1 11/06 06:53 Body Mass Index 29.05 (81.65 kg, 167.64 cm) iw 11/06 05:10 Unable to collect due to patient refusal. tb4 05:10 unable to collect tb4 ED Course: 05:10 Arm band placed on right wrist. tb4 05:13 Patient arrived in ED. rv1 05:15 Shady Castillo MD is Attending Physician. sp4 05:39 Patient has correct armband on for positive identification. Placed in gown. Bed in low tb4 position. Valuables inventory done. See valuables checklist. Sitter at bedside. Warm blanket given. 07:09 Triage completed. tb4 07:24 Attending Physician role handed off by Shady Castillo MD sp3 07:24 Renan Orr MD is Attending Physician. sp3 08:12 Megan Boudreaux, KOBE is Primary Nurse. iw 08:39 Inserted saline lock: 22 gauge in right wrist, using aseptic technique. Blood ty collected. Flushed with 10 mL NS. 10:07 contacted [facility] to have pt evaluated. bd 12:35 Provided Education on: needs for transfer. rg5 12:35 No provider procedures requiring assistance completed. rg5 16:21 re contacted [facility] to have pt evaluated. bd 18:23 faxed chart to [facility]. bd 21:45 Assisted to bathroom. ts3 21:45 Assisted to bathroom. ts3 21:53 Attending Physician role handed off by Renan Orr MD sp4 21:53 Shady Castillo MD is Attending Physician. sp4 11/07 07:02 Primary Nurse role handed off by Megan Boudreaux, RN bd 07:03 Homar Das, RN is Primary Nurse. bp 08:20 Assisted to bathroom. ty 08:24 faxed chart to [facility]. bd 08:46 pt accepted in transfer to [facility] by Dr Barlow admin approval given by Yovanny. bd 09:08 Patient redirected back into room, after patient insisted on leaving. ty 09:10 Verbal reassurance given. Patient wanting to be clean and ready for ''Belle". ty 09:15 Assisted to bathroom. ty 10:02 Verbal reassurance given. Patient crying wanting her "Roshan". ty 10:12 Patient escorted back to room after attempting to leave, patient attempted run into a ty different patients room. 10:42 Assisted to bathroom. ty 10:45 Verbal reassurance given. Patient crying saying she is not ready for "Roshan" and ty demanding all staff to come into room and pray to her "Belle". Patient reassured that request can not be completed at this time due to how busy it is. Patient understood and patient escorted back to bed. 11:10 contacted [facility] dispatch to have a mental health deputy transport pt to [facility].bd 11:15 Attending Physician role handed off by Shady Castillo MD ms3 11:15 David Cross DO is Attending Physician. ms3 12:41 IV discontinued, intact, bleeding controlled, No redness/swelling at site. Pressure me1 dressing applied. Administered Medications: 11/06 05:55 Drug: Geodon IM 40 mg IM once Route: IM; Site: right gluteus; jj7 12:00 Follow up: Response: No adverse reaction rg5 09:08 Drug: NS 0.9% IV 1000 ml IV at 1000 ml once; to be given as a bolus over 60 minutes iw Route: IV; Rate: 1000 ml; Site: right wrist; 12:00 Follow up: IV Status: Completed infusion; IV Intake: 1000ml rg5 21:36 Drug: LORazepam PO 2 mg PO once Route: PO; rg5 22:49 Follow up: Response: No adverse reaction; Anxiety unchanged al5 23:07 Not Given (med not available in hospitall): [id number] mg PO once al5 23:07 Drug: diphenhydrAMINE PO 50 mg PO once Route: PO; al5 11/07 01:34 Follow up: Response: No adverse reaction; Anxiety decreased; RASS: Drowsy (-1) al5 11/06 23:07 Drug: HALdol (as decanoate) IM 10 mg IM once Route: IM; Site: left gluteus; al5 11/07 01:34 Follow up: Response: No adverse reaction; Anxiety decreased; RASS: Drowsy (-1) al5 11:22 Drug: Ativan IVP 1 mg IVP once Route: IVP; Site: right wrist; ph 12:13 Follow up: Response: No adverse reaction bp 12:13 Drug: Ativan IVP 1 mg IVP once Route: IVP; Site: right forearm; bp 12:43 Follow up: Response: No adverse reaction; Anxiety unchanged me1 Medication: 11/06 12:35 VIS not applicable for this client. rg5 Intake: 12:00 IV: 1000ml; Total: 1000ml. rg5 Outcome: 09:19 ER care complete, transfer ordered by . sp3 11/07 12:40 Transferred Note: [facility] with mental health deputy. me1 Condition: stable Instructed on the need for transfer, 12:42 Patient left the ED. me1 Signatures: Mayte Nieves Irene RN KOBE Marleny Johnson RN RN Homar Das, RN RN bp David Cross DO DO ms3 Renan Orr MD MD sp3 Yumiko Manuel RN RN jj7 Beatriz Daniels rvShady Kemp MD MD sp4 Odette Urias RN RN me1 Breonna Espinoza cp4 Seng Lombardi Rommel, RN RN rg5 Santy Glover RN RN al5 Nicole Canseco oh1 Kelsie Kelly RN RN tb4 Ilda Vega ts3 Corrections: (The following items were deleted from the chart) 11/06 08:19 06:53 BP 127 / 69 Supine; Pulse 67bpm; Pulse Ox 96% RA; Temp 97.7F Oral; oh1 iw 11/07 01:33 00:02 Reassessment: Patient appears in no apparent distress at this time. Patient al5 and/or family updated on plan of care and expected duration. Pain level reassessed. patient resting comfortably at this time, respirations even and unlabored, patient in no apparent distress at this time al5 06:14 02:35 Reassessment: Patient appears in no apparent distress at this time. No changes al5 from previously documented assessment. Patient is alert, oriented x 3, equal unlabored respirations, skin warm/dry/pink. patient resting comfortably at this time, respirations even and unlabored, patient in no apparent distress at this time al5 06:14 04:35 Reassessment: Patient appears in no apparent distress at this time. No changes al5 from previously documented assessment. Patient and/or family updated on plan of care and expected duration. Pain level reassessed. al5
--- NOTE | 2024-11-06 09:20 | EDPHYS ---
Physician Documentation [facility] Name: Ofe Ordoñez Age: 43 yrs Sex: Female : 1980 Arrival Date: 11/06/2024 Time: 05:10 Bed 20 Private MD: ED Physician David Cross HPI: 11/06 05:16 This 43 yrs old Female presents to ER via Unassigned with complaints of sp4 delusions . 06:15 43-year-old female was found wandering in the streets by the procurement officer. Patient is sp4 here for delusional train of thoughts disorganized thinking and erratic behavior. Denies suicidal homicidal ideation. . 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 me1 Historical: - Allergies: 11/06 12:15 Cephalexin; iw - PMHx: 12:15 ADD/ADHD; Anxiety; depressive disorder; Schizophrenia; iw - Immunization history:: Adult Immunizations unknown. - Infectious Disease History:: Denies. - Family history:: not pertinent. - Social history:: Smoking status: unknown. ROS: 06:15 Constitutional: Negative for fever, chills, and weight loss, positive for delusions, sp4 positive for hallucinations, positive for disorganized behavior 06:15 All other systems are negative, Exam: 06:15 Constitutional: This is a well developed, well nourished patient who is awake, alert, sp4 presents with disorganized thinking and rambling speech, mostly cooperative Head/Face: Normocephalic, atraumatic. Eyes: Pupils equal round and reactive to light, extra-ocular motions intact. Lids and lashes normal. Conjunctiva and sclera are not injected. Cornea within normal limits. Periorbital areas with no swelling, redness, or edema. ENT: Nares patent. No nasal discharge, no septal abnormalities noted. Tympanic membranes are normal and external auditory canals are clear. Oropharynx with no redness, swelling, or masses, exudates, or evidence of obstruction, uvula midline. Mucous membranes moist. Neck: Trachea midline, no thyromegaly or masses palpated, and no cervical lymphadenopathy. Supple, full range of motion without nuchal rigidity, or vertebral point tenderness. Chest/axilla: Normal chest wall appearance and motion. Nontender with no deformity. No lesions are appreciated. Cardiovascular: Regular rate and rhythm with a normal S1 and S2. No gallops, murmurs, or rubs. No pulse deficits. Respiratory: Lungs have equal breath sounds bilaterally, clear to auscultation and percussion. No rales, rhonchi or wheezes noted. No increased work of breathing, no retractions or nasal flaring. Abdomen/GI: Soft, with normal bowel sounds. No distension or tympany. No guarding or rebound. No evidence of tenderness throughout. Back: No spinal tenderness. No costovertebral tenderness. Skin: Warm, dry with normal turgor. Normal color with no rashes, no lesions, and no evidence of cellulitis. MS/ Extremity: Pulses equal, no cyanosis. Neurovascular intact. Full, normal range of motion. Neuro: Awake and alert, GCS 14, oriented to person, Cranial nerves II-XII grossly intact. Motor strength 5/5 in all extremities. Sensory grossly intact. 08:49 ECG was reviewed by the Attending Physician. EKG demonstrates normal sinus rhythm at 63 sp3 bpm with normal intervals, normal QRS, normal axis, and normal ST/T-segment's without evidence of acute ischemia. Vital Signs: 05:10 tb4 05:10 tb4 06:53 BP 127 / 69 Supine; Pulse 67; Resp 16 S; Temp 97.7(O); Pulse Ox 96% on R/A; Weight iw 81.65 kg; Height 5 ft. 6 in. ; 23:00 BP 129 / 84; Pulse 70; Resp 18; Pulse Ox 100% on R/A; al5 11/07 07:00 BP 131 / 75; Pulse 75; Resp 16; Pulse Ox 99% ; bp 12:37 BP 130 / 78; Pulse 68; Resp 16; Temp 98.2; Pulse Ox 98% ; me1 11/06 06:53 Body Mass Index 29.05 (81.65 kg, 167.64 cm) iw 11/06 05:10 Unable to collect due to patient refusal. tb4 05:10 unable to collect tb4 MDM: 06:00 Medical Screening Exam initiated sp4 07:35 ED course: Patient signed out to me by nighttime physician. Patient is a 43-year-old sp3 female history of multiple psychiatric admissions now here for altered mental status after police found her wandering in the street. Full workup pending to rule out any metabolic etiology after which psychiatric evaluation will occur.. 09:19 Data reviewed: vital signs, nurses notes, lab test result(s), EKG. ED course: Patient garret is now medically cleared. We will evaluate for psychiatric transfer.. 11/07 08:18 Differential diagnosis: drug withdrawal. acute psychotic break, psychosis secondary to ms3 non-compliance. Consideration of Admission/Observation Patient to be transferred. I considered the following discharge prescriptions or medication management in the emergency department Medications were administered in the Emergency Department. See MAR. ED course: Reevaluation of patient: Patient is alert, in no apparent distress, nontoxic-appearing, sleeping in bed and easily arousable. Patient states she is in a place she created. Patient states she is not having auditory visual hallucinations yet.. 08:18 Independent interpretation of the following test(s) in the Emergency Department EKG: [email or web address] See my EKG interpretation above. Counseling: I had a detailed discussion with the patient and/or guardian regarding the historical points, exam findings, and any diagnostic results supporting the discharge/admit diagnosis, lab results, the need to transfer to another facility, [facility] does not immediately have the required specialist. 12:13 ED course: Patient becoming agitated as she wants to go home due to her denominational of ms3 "Agita". 1 mg Ativan ordered.. 11/06 05:16 Order name: Acetaminophen; Complete Time: 09:18 sp4 11/06 05:16 Order name: Basic Metabolic Panel; Complete Time: 09:18 4 11/06 05:16 Order name: CBC with Diff; Complete Time: 08:33 sp4 11/06 05:16 Order name: ETOH Level; Complete Time: 09:18 sp4 11/06 05:16 Order name: Hepatic Function; Complete Time: 09:18 sp4 11/06 05:16 Order name: PT-INR; Complete Time: 09:18 sp4 11/06 05:16 Order name: Test, Urine; Complete Time: 09:18 sp4 11/06 05:16 Order name: Ptt, Activated; Complete Time: 09:18 4 11/06 05:16 Order name: Salicylate; Complete Time: 10:44 sp4 11/06 05:16 Order name: Urine Drug Screen; Complete Time: 10:44 sp4 11/06 05:16 Order name: CK; Complete Time: 09:18 sp4 11/06 05:16 Order name: EKG; Complete Time: 05:17 sp4 11/06 05:16 Order name: EKG - Nurse/Tech; Complete Time: 08:12 sp4 11/06 05:16 Order name: IV Saline Lock; Complete Time: 08:38 sp4 11/06 05:16 Order name: Labs collected and sent; Complete Time: 08:12 sp4 11/06 05:16 Order name: Suicide Precautions; Complete Time: 09:46 sp4 11/06 05:16 Order name: Suicide Screening ([place]); Complete Time: 09:46 sp4 Administered Medications: 11/06 05:55 Drug: Geodon IM 40 mg IM once Route: IM; Site: right gluteus; [email or web address] 12:00 Follow up: Response: No adverse reaction rg5 09:08 Drug: NS 0.9% IV 1000 ml IV at 1000 ml once; to be given as a bolus over 60 minutes iw Route: IV; Rate: 1000 ml; Site: right wrist; 12:00 Follow up: IV Status: Completed infusion; IV Intake: 1000ml rg5 21:36 Drug: LORazepam PO 2 mg PO once Route: PO; rg5 22:49 Follow up: Response: No adverse reaction; Anxiety unchanged al5 23:07 Not Given (med not available in hospitall): [id number] mg PO once al5 23:07 Drug: diphenhydrAMINE PO 50 mg PO once Route: PO; al5 11/07 01:34 Follow up: Response: No adverse reaction; Anxiety decreased; RASS: Drowsy (-1) al5 11/06 23:07 Drug: HALdol (as decanoate) IM 10 mg IM once Route: IM; Site: left gluteus; al5 11/07 01:34 Follow up: Response: No adverse reaction; Anxiety decreased; RASS: Drowsy (-1) al5 11:22 Drug: Ativan IVP 1 mg IVP once Route: IVP; Site: right wrist; ph 12:13 Follow up: Response: No adverse reaction bp 12:13 Drug: Ativan IVP 1 mg IVP once Route: IVP; Site: right forearm; bp 12:43 Follow up: Response: No adverse reaction; Anxiety unchanged me1 Disposition Summary: 11/06/24 09:19 Transfer Ordered Notes: Transfer Location: Psych Facility sp3 Reason: Higher level of care sp3 Condition: Stable sp3 Problem: an acute exacerbation sp3 Symptoms: have worsened sp3 Accepting Physician: Psychiatric accepting facility(11/07/24 12:42) me1 Diagnosis - Methamphetamine use disorder, acute methamphetamine intoxication, acute drug sp4 related psychosis, exacerbation of chronic schizophrenia(11/06/24 23:04) Forms: - Medication Reconciliation Form sp3 - SBAR form sp3 Critical care time excluding procedures: 18:43 Critical care time: Bedside Care: 35 minutes. Total time: 35 minutes ms3 Signatures: Dispatcher [employer] Megan Benavidez, RN KOBE iw Marleny Johnson RN Homar Farmer ph, RN RN David Early DO DO ms3 Renan Orr MD MD sp3 Yumiko Manuel RN RN jj7 Shady Castillo MD MD sp4 Odette Urias RN RN me1 Odin Packer RN RN rg5 Josefa Glover RN RN al5 Corrections: (The following items were deleted from the chart) 11/06 23:04 09:19 Psychiatric accepting facility sp3 sp4 23:04 09:19 Psychosis, altered mental status sp3 sp4 11/07 12:42 08 23:04 Psychiatric accepting facility sp4 me1
[2024-11-06 10:40] LABS: METHAMPHETAM POSITIVE (NEGATIVE); THC Cannibis POSITIVE (NEGATIVE)
[2024-11-06] MEDS ORDERED: LORAZEPAM 1 MG TABLET ONE (21:34)
[2024-11-06] MEDS ORDERED: DIPHENHYDRAMINE 25 MG TAB/CAP ONE (22:52)
[2024-11-06] MEDS ORDERED: HALOPERIDOL LACT 5 MG/ML INJ ONE (22:54)
[2024-11-07] MEDS ORDERED: LORazepam 2 MG/ML VIAL ONE ×2 (11:16→12:10)
== END 2024-11-07 12:42 ==
LOC: ER 05:10
DX: F15.129 Other stimulant abuse with intoxication, unspecified (principal); F20.9 Schizophrenia, unspecified
CPT/HCPCS: 36415; 80048; 80076; 80143; 80179; 80307; 81025; 82077; 82550; 85025; 85610; 85730; 93005; 96372; 99285; J1630; J3486; J7030